=== PATIENT | male | born 1940 | race Hispanic/Latino ===

== ENCOUNTER 2016-09-30 08:58 | Outpatient (CLI) | payer MEDICARE ==
--- NOTE | 2016-09-30 12:39 | Cat Scan Report ---
CT chest with contrast: Nonspecified abnormal chest image findings. Outside images not available. Following IV contrast administration transverse images are obtained through the chest into the upper abdomen. Coronal and sagittal 2-D reformatted images included. The pulmonary vessels are well opacified. No filling defects noted. No filling defects in the opacified cardiac chambers. The thoracic aorta is normal in size and contour. Cardiac bypass changes are noted. Pretracheal lymph node measuring 13 mm. No other enlarged lymph nodes identified. The central airways are patent. The lungs are well-inflated. There is no pulmonary nodule, infiltrate, or pleural disease noted. Sections carried into the upper abdomen demonstrates a 5.3 cm exophytic cyst extending laterally from the left kidney. The bones are demineralized. There is diffuse spondylosis. There is mid and anterior superior plate compression of what appears to be the T9 body and mild diffuse compression of the T11 body. Multiple interspace narrowing is noted between T9 and T12. Impressions: 1. No significant pulmonary pathology identified. 2. Left renal cyst.
== END 2016-09-30 08:59 | disposition home or self-care (01) ==
LOC: SPVIMAG 08:58
PROVIDERS: ATTEND Internal Medicine
DX: N28.1 Cyst of kidney, acquired (principal); M47.899 Other spondylosis, site unspecified; R93.8 Abnormal findings on diagnostic imaging of other specified body structures
CPT/HCPCS: 71260; Q9967